=== PATIENT | male | born 1995 | race Caucasian/White ===

== ENCOUNTER → 2016-12-31 | Outpatient (CLI) | payer OTHER ==
--- NOTE | 2016-12-31 14:55 | DIAGNOSTIC IMAGING REPORT ---
R UPPER EXT JOINT WITHOUT CLINICAL HISTORY: 21 years-old Male with R SHOULDER PAIN. Acute right-sided shoulder pain. 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 Patient complains of weakness and instability with internal rotation. COMPARISON: None. TECHNIQUE: Multiplanar, multi sequence MRI of the right shoulder was performed without contrast. FINDINGS: ROTATOR CUFF: There is an intermediate grade articular sided partial-thickness tear of the mid substance supraspinatus tendon, 5 x 6 mm in transverse and AP dimension, nicely seen on image 10 of series 8 and image 6 of series 6. There is background mild supraspinatus tendinosis. No retraction or atrophy. The infraspinatus, teres minor and subscapularis tendons are intact and appear to be within normal limits. BICEPS TENDON: The long head biceps tendon is intact. No evidence of tendinosis. The biceps reynaldo and anchor are intact. LABRUM: The glenoid labrum is intact to the extent that it is visualized. There is no evidence for a paralabral cyst. GLENOHUMERAL JOINT: The articular cartilage overlying the glenoid fossa is normal. There is no large glenohumeral joint effusion. There is no loose body or debris present within the glenohumeral joint. ACROMIOCLAVICULAR JOINT: The AC joint is intact without significant degenerative change or mass effect. No evidence of os acromiale. There is trace subacromial/subdeltoid bursitis. OUTLET SPACES: The suprascapular notch and quadrilateral space are without obstructing or space occupying lesions. BONE MARROW: No focal abnormality, fracture or marrow occupying lesion. SOFT TISSUES: The periarticular soft tissues are unremarkable. IMPRESSION: 1. Immediate grade articular sided partial thickness tear of the mid substance supraspinatus tendon, 5 x 6 mm is noted with mild background supraspinatus tendinosis. 2. No labral or long head biceps tendon tear. 3. Trace subacromial/subdeltoid bursitis. The above report was generated using voice recognition software. It may contain grammatical, syntax or spelling errors. Electronically signed by: Dalton Fisher M.D. 12/31/2016 2:54 PM Dictated Date/Time: 12/31/2016 2:46 PM
== END | disposition home or self-care (01) ==
LOC: C.MRIBC 13:42
PROVIDERS: ATTEND Orthopaedic Surgery
DX: M75.111 Incomplete rotator cuff tear or rupture of right shoulder, not specified as traumatic (principal); M75.81 Other shoulder lesions, right shoulder; M75.51 Bursitis of right shoulder